=== PATIENT | female | born 1975 | race Caucasian/White ===

== ENCOUNTER 2021-01-05 17:33 | Emergency (ER) | payer OTHER ==
[2021-01-05 18:23] VITALS: BP 140/81; PULSE 78; RESP 18; TEMP 98.6
[2021-01-05] MEDS ORDERED: LIDOCAINE 1% INJ 10MG/ML (20 ML MDV) SQ ONE (19:05)
--- NOTE | 2021-01-05 19:08 | ED ---
ENT HPI - General Source: patient, RN notes reviewed Mode of arrival: ambulatory Limitations: no limitations - History of Present Illness MD complaint: tooth pain Location: tooth # (16) Severity scale (1-10): 10 Quality: sharp Consistency: constant Improves with: none Worsens with: none Context- Dental: other (cracked tooth) Associated Symptoms: other (left facial pain) <Ray Castellanos - Last Filed: 01/05/21 23:10> <Mallory Siegel - Last Filed: 01/09/21 14:26> - General Chief complaint: Dental/Oral Stated complaint: dental pain Time Seen by Provider: 01/05/21 18:41 - History of Present Illness Initial comments: 45-year-old white female who is tearful presents to the emergency room alert and oriented 4 complaining of left upper tooth pain. She states it has been off and on for several weeks that she has an appointment at the end of January however last night at 6 PM she started having excruciating pain and cannot get relief. She states that the left side of her face hurts to her ear. She states that she's tried Motrin with no relief. She tried whiskey last night with no relief. (Ray Castellanos) - Related Data Previous Rx's Medication Instructions Recorded Ibuprofen [Motrin] 600 mg PO Q8HR PRN #30 tab 01/05/21 Penicillin V Potassium [Pen Vee K] 500 mg PO QID 10 Days #40 tablet 01/05/21 Allergies Allergy/AdvReac Type Severity Reaction Status Date / Time No Known Allergies Allergy Verified 01/05/21 19:15 Review of Systems ROS Other: All systems not noted in ROS Statement are negative. <Ray Castellanos - Last Filed: 01/05/21 23:10> ROS Other: All systems not noted in ROS Statement are negative. <Mallory Siegel - Last Filed: 01/09/21 14:26> ROS Statement: Those systems with pertinent positive or pertinent negative responses have been documented in the HPI. Past Medical History Past Medical History: No Reported History History of Any Multi-Drug Resistant Organisms: None Reported Past Surgical History: Cholecystectomy, Orthopedic Surgery Additional Past Surgical History / Comment(s): lumpectomy Past Psychological History: No Psychological Hx Reported Smoking Status: Current every day smoker Past Alcohol Use History: None Reported Past Drug Use History: None Reported <Ray Castellanos - Last Filed: 01/05/21 23:10> General Exam Limitations: no limitations General appearance: alert, in no apparent distress Head exam: Present: atraumatic, normocephalic, normal inspection Eye exam: Present: normal appearance, PERRL, EOMI. Absent: scleral icterus, conjunctival injection, periorbital swelling ENT exam: Present: normal exam, normal oropharynx, mucous membranes moist Neck exam: Present: normal inspection, full ROM. Absent: tenderness, meningismus, lymphadenopathy Respiratory exam: Present: normal lung sounds bilaterally. Absent: respiratory distress, wheezes, rales, rhonchi, stridor Cardiovascular Exam: Present: regular rate, normal rhythm, normal heart sounds. Absent: systolic murmur, diastolic murmur, rubs, gallop, clicks Back exam: Present: full ROM. Absent: tenderness, CVA tenderness (R), CVA tenderness (L), muscle spasm, paraspinal tenderness, vertebral tenderness, rash noted Neurological exam: Present: alert, oriented X3, CN II-XII intact Psychiatric exam: Present: normal affect, normal mood, other (Tearful) Skin exam: Present: warm, dry, intact, normal color. Absent: rash <Ray Castellanos - Last Filed: 01/05/21 23:10> Course Vital Signs 01/05/21 18:21 Temperature 98.6 F Pulse Rate 78 Respiratory 18 Rate Blood Pressure 140/81 O2 Sat by Pulse 96 Oximetry Procedures - Nerve Block Consent Obtained: verbal consent Local Anesthetic Used: Other (marcaine .5% and lidocaine 1%) Side: left Nerve Blocks: other Intraoral Nerve Block: supraperiosteal Procedure Successful: Yes Complications: none <Ray Castellanos - Last Filed: 01/05/21 23:10> Medical Decision Making <Ray Castellanos - Last Filed: 01/05/21 23:10> <Mallory Siegel - Last Filed: 01/09/21 14:26> - Medical Decision Making Patient is afebrile with no trismus or lymphadenopathy. There is no visible abscess. Patient was given a dental block for pain in addition to antibiotics, Motrin and Tylenol #3's. She was directed to keep her appointment with her dentist at the end of the month. Return with any new or worsening symptoms. Case discussed with Dr. Siegel (Ray Castellanos) I was available for consultation in the emergency department. The history and physical exam were done by the midlevel provider. I was consulted for this patients care. I reviewed the case with the midlevel provider and based on their presentation of the patient, I agree with the assessment, medical decision making and plan of care as documented. Chart was dictated using [employer] dictation software. Attempts were made to correct any dictation errors however some typographical errors may persist. Patient was seen during a national state of emergency due to the Covid-19 pandemic. (Mallory Siegel) Disposition Is patient prescribed a controlled substance at d/c from ED?: No Time of Disposition: 19:34 <Ray Castellanos - Last Filed: 01/05/21 23:10> <Mallory Siegel - Last Filed: 01/09/21 14:26> Clinical Impression: Pain, dental Disposition: HOME SELF-CARE Condition: Good Instructions (If sedation given, give patient instructions): Toothache (ED) Additional Instructions: Keep your 0.0 with a dentist and Cori, Motrin for pain, Tylenol threes as needed. Return if any new or worsening symptoms including fever increased pain or swelling. Prescriptions: Ibuprofen [Motrin] 600 mg PO Q8HR PRN #30 tab PRN Reason: Pain Penicillin V Potassium [Pen Vee K] 500 mg PO QID 10 Days #40 tablet Referrals: None,Stated [Primary Care Provider] - 1-2 days
[2021-01-05] MEDS ORDERED: BUPIVACAINE (PF) 0.5% 30 ML VIAL SQ STA (19:31)
[2021-01-05] MEDS ORDERED: PENICILLIN VK 500MG STARTER 4 TAB BTL PO STA (19:45)
[2021-01-05] MEDS ORDERED: ACET/COD 300 MG/30 MG STARTER PACK 6 TAB BTL PO STA (19:45)
== END 2021-01-05 19:58 | disposition home or self-care (01) ==
LOC: EC 17:33
DX: K08.89 Other specified disorders of teeth and supporting structures (principal); R51.9 Headache, unspecified; K03.81 Cracked tooth; F17.200 Nicotine dependence, unspecified, uncomplicated; Z23 Encounter for immunization
CPT/HCPCS: 99283; 64400; J2001